=== PATIENT | female | born 1970 | race Caucasian/White ===

== ENCOUNTER 2018-11-08 16:51 | Observation (INO) ==
[2018-11-08 17:52] LABS: BASO% 0.2 % (0.0-0.8); EOS% 1.5 % (0.0-10.0); HEMATOCRIT 40.9 % (37.0-47.0); HEMOGLOBIN 13.7 g/dL (12.0-16.0); IMM GRAN% 0.2 % (0.0-0.5); LYMPH% 21.8 % (20.5-51.1); MCH 29.4 PG (27-31); MCHC 33.5 g/dL (33-37); MCV 87.8 FL (81-99); MONO% 6.5 % (1.7-9.3); MPV 10.5 FL (7.4-10.4); NEUT% 69.8 % (42.2-75.2); PLT 223 X1000 (130-400); RBC 4.66 XMIL (4.2-5.4); WBC 9.73 X1000 (4.8-10.8)
[2018-11-08 17:53] LABS: BASO# 0.02 X1000 (0.0-0.2); EOS# 0.15 X1000 (0.0-0.7); IMM GRAN# 0.02 X1000 (0.0-0.04); LYMPH# 2.12 X1000 (1.2-3.4); MONO# 0.63 X1000 (0.11-0.59); NEUT# 6.79 X1000 (1.4-6.5)
[2018-11-08 18:04] LABS: HEMOGLOBIN A1C 5.6 % (4.8-6.0)
[2018-11-08 19:00] LABS: AGAP 19; ALKALINE PHOSPHATASE 85 U/L (32-104); BUN 11 mg/dL (8-22); CALCIUM 9.3 mg/dL (8.8-10.2); CHLORIDE 102 mmol/L (98-107); COSMO 285; CREATININE 0.8 mg/dL (0.5-0.9); ESTIMATED GFR > 60; GLUCOSE 102 mg/dL (70-104); GOT 17 U/L (10-30); GPT 13 U/L (10-36); POTASSIUM 3.5 mmol/L (3.5-5.1); SODIUM 143 mmol/L (136-145); TCO2 22 mmol/L (25-35); TOTAL BILIRUBIN 0.29 mg/dL (0.20-1.00); TOTAL PROTEIN 7.1 g/dL (6.3-8.3)
[2018-11-08 19:12] LABS: ALBUMIN 4.5 g/dL (3.5-5.0)
[2018-11-08 19:19] LABS: ALB/GLOB RATIO 1.7
--- NOTE | 2018-11-08 19:46 | EKG Report ---
Test Performed on : 11/08/2018 6:10:06 PM Test Reason : chest pain Blood Pressure : / mmHG Vent. Rate : 067 BPM Atrial Rate : 067 BPM P-R Int : 152 ms QRS Dur : 088 ms QT Int : 424 ms P-R-T Axes : -26 044 038 degrees QTc Int : 448 ms Normal sinus rhythm. Normal ECG No previous ECGs available Confirmed by Agustina Holly MD ([id number]) on 11/10/2018 12:10:26 PM
--- NOTE | 2018-11-08 19:53 | Diag Imaging Result Doc PS360 ---
EXAM: CHEST-2 VIEWS - 11/08/2018 HISTORY: chest pain TECHNIQUE: Chest two views COMPARISON: None. FINDINGS: Heart size is normal. The lungs appear clear. There is no pleural effusion or pneumothorax identified. IMPRESSION: No evidence of acute disease. Electronically signed by Rogelio Flores 11/08/2018 7:51 PM
--- NOTE | 2018-11-08 20:02 | Diag Imaging Result Doc PS360 ---
EXAM: CT ABD/PELVIS W/PO AND IV CON - 11/08/2018 HISTORY: abd pain TECHNIQUE: CT abdomen/pelvis with oral and intravenous contrast COMPARISON: None. FINDINGS: The visualized lung bases appear clear. There is a possible small hiatal hernia. There are no substantial abnormalities of the liver, spleen, or pancreas identified. There is a 2.2 x 1.3 cm right adrenal nodule which likely represents adenoma. The left adrenal gland is unremarkable. There are no calcified gallstones or pericholecystic inflammation identified. The bilateral kidneys enhance homogeneously. There is no hydronephrosis. There are nonspecific small retroperitoneal lymph nodes. There are bilateral L5 pars interarticularis defects noted. There is no evidence of bowel obstruction. The appendix is unremarkable. There is colonic diverticulosis which is most prominent at the descending and sigmoid colon. There is no evidence of diverticulitis. There is no free air or abscess identified. There are postsurgical changes of partial hysterectomy. There is apparent 4.9 x 3 cm left ovarian cyst. There is no substantial free fluid seen. IMPRESSION: Possible small hiatal hernia. No calcified gallstones. No pericholecystic inflammation. 2.2 x 1.3 cm right adrenal nodule, which likely represents adenoma. No bowel obstruction. Unremarkable appendix. Colonic diverticulosis. No evidence of diverticulitis. Apparent 4.9 x 3 cm left ovarian cyst. Bilateral L5 pars interarticularis defects noted. This exam was performed using automated exposure control, adjustment of mA or kV according to patient size, and/or use of iterative reconstruction technique. Electronically signed by Rogelio Flores 11/08/2018 8:00 PM
[2018-11-08] MEDS ORDERED: LABETALOL IV PRN (20:15)
[2018-11-08] MEDS ORDERED: ZOFRAN IV PRN (20:24)
[2018-11-08] MEDS ORDERED: MORPHINE IV PRN (20:24)
[2018-11-08] MEDS ORDERED: KLOR-CON PO ONE (20:29)
[2018-11-08] MEDS ORDERED: SODIUM CHLORIDE 0.9% INJ SCH (20:30)
[2018-11-08] MEDS ORDERED: PROTONIX IV SCH (20:30)
--- NOTE | 2018-11-08 21:07 | Diag Imaging Result Doc PS360 ---
EXAM: THORACIC SPINE - 11/08/2018 HISTORY: upper back pain TECHNIQUE: Thoracic spine three views COMPARISON: None. FINDINGS: There is slight levo rotatory scoliosis at the mid to lower thoracic spine. There is mild spondylosis with small anterior and lateral osteophytes. There is no destructive or sclerotic lesion identified. There is no fracture or subluxation identified. IMPRESSION: Mild degenerative changes. No evidence of fracture or subluxation. Electronically signed by Rogelio Flores 11/08/2018 9:05 PM
--- NOTE | 2018-11-08 21:08 | HISTORY AND PHYSICAL ---
CHIEF COMPLAINT: Abdominal pain. HISTORY OF PRESENT ILLNESS: A 48-year-old, white female patient, not doing well the last 2 to 3 days. Complaining of pain in the lower abdomen moderate in intensity. The pain is off and on. This patient did have some chills, nausea, but no vomiting. The pain is lasting for a few hours. Sometimes the pain comes and goes. The patient was also complaining of pain in the left side of the chest going to the back, mild shortness of breath. No sweating. Her risk factors for coronary artery disease include hypertension, hyperlipidemia, menopause. The patient was complaining of pain in the upper back which was also mild to moderate in intensity. The patient had multiple vague complaints. I evaluated patient in the office. She did have tenderness in the lower abdomen, also in the upper back. The patient was in [id number] distress, and I decided to admit the patient for further care. The patient had polyuria, polydipsia, occasional dysuria, but no gross hematuria. She denied any vaginal discharge, spotting, bleeding. At times, constipation. No diarrhea, blood or mucus in the stool. No abdominal distention. No runny nose, stuffy nose. Denied any sinus drainage. Occasional dull headache. Vague chest pain, left precordial area. No radiation of pain into the arm. No major weight loss or weight gain. Occasional cough. No expectoration or hemoptysis. ALLERGIES: No known drug allergy. MEDICATIONS: Include Hyzaar and Singulair. PAST MEDICAL HISTORY: Hypertension, hyperlipidemia, rhinitis, obesity. Patient had hysterectomy. PERSONAL HISTORY: , lives with the . Denied alcohol or substance abuse. Patient is a nurse working in the alf. FAMILY HISTORY: Significant for mother with diabetes, multiple myeloma, and ovarian cancer. REVIEW OF SYSTEMS: As per HPI. PHYSICAL EXAMINATION: GENERAL: Middle-aged, white female patient, moderately obese, in mild distress. VITAL SIGNS: Noted. SKIN: No rash or petechiae. HEENT: Head atraumatic, normocephalic. Crane conjunctivae. Anicteric sclerae. Extraocular muscle movement normal. Fundus cannot be penetrated. Good oral hygiene. No tonsillopharyngeal congestion or exudate. Ears and nose benign. NECK: Supple. No JVD, thyromegaly, or lymphadenopathy. CHEST: Bibasilar crepitation. Occasional wheezing. CARDIOVASCULAR: S1 and S2 heard. No gallop or thrill. ABDOMEN: Soft. No distention. Bowel sounds present. Patient does have tenderness in the epigastrium, lower abdomen. No guarding or rigidity. EXTREMITIES: No cyanosis, clubbing. No acute DVT. Peripheral pulsation intact. CENTRAL NERVOUS SYSTEM: Alert, awake, able to move all 4 limbs. Mild tenderness of upper back. LABORATORY AND DIAGNOSTIC DATA: WBC count 9.73, hemoglobin 13.7, hematocrit 40.9, platelet count 223,000. Electrolytes were fairly benign. Potassium 3.5. Cardiac isoenzymes were negative. Hemoglobin A1c was 5.6. TSH 1.45. The patient had a chest x-ray done which was negative. CT scan of the abdomen and pelvis did reveal a right adrenal nodule, which looks benign. No evidence of cholecystitis. No bowel obstruction. A 4.9 x 3 cm left ovarian cyst. CONSIDERATIONS: 1. Abdominal pain. 2. Left ovarian cyst. I am going to get a CA-125. 3. Gastritis and reflux disease. 4. History of hypertension. 5. Mild hypokalemia. 6. Upper back pain. PLAN: Admit the patient, IV hydration, pain management, symptomatic treatment. Overall plan discussed at length with the patient and she is in agreement. I am going to supplement potassium, continue home medicine, symptomatic treatment for pain. cc: Lacho Joyce MD
[2018-11-08 21:39] LABS: URINE SOURCE CLEAN CATCH
[2018-11-08 22:16] LABS: BILIRUBIN URINE NEGATIVE (NEGATIVE); BLOOD URINE LARGE (NEGATIVE); COLOR STRAW; GLUCOSE URINE NEGATIVE (NEGATIVE); KETONE URINE NEGATIVE (NEGATIVE); LEUKOCYTES URINE MODERATE (NEGATIVE); NITRITE URINE NEGATIVE (NEGATIVE); PH URINE 7.5; PROTEIN URINE NEGATIVE (NEGATIVE); SP GRAVITY URINE 1.046; TURBIDITY URINE CLEAR (CLEAR); UROBILINOGEN URINE NORMAL (NORMAL)
[2018-11-08 22:18] LABS: UR EPITHELIAL CELLS <10 /HPF (<10); URINE BACTERIA NEGATIVE /HPF; URINE RBC 20-40 /HPF (<10); URINE WBC <10 /HPF (<10)
[2018-11-08] MEDS: NS + KCL 20 MEQ 1,000 ML IV SCH (22:41)
[2018-11-08 22:49] LABS: URINE CASTS NONE SEEN; URINE CRYSTALS NONE SEEN; URINE SMALL ROUND CELLS NONE SEEN; URINE YEAST NONE SEEN
[2018-11-09] MEDS ORDERED: LEVAQUIN 500 MG/D5W 500 MG/100 ML IVPB IV SCH (07:15)
--- NOTE | 2018-11-09 07:28 | PROGRESS NOTE ---
DATE: 11/09/2018 SUBJECTIVE: Ms. Crowe is feeling better. Her abdominal pain is improving. No nausea. No high- grade fever or chills. Back pain is also getting better. No dysuria or hematuria. No vaginal discharge. OBJECTIVE: Vital Signs: Noted. T-max was 99.6 degrees. Neck: Supple. No JVD. Mild tenderness to upper back. Lungs: Bilateral good air entry present. CVS: S1 and S2 heard. Abdomen: Soft, globular. Bowel sounds present. Tenderness in the epigastrium and lower abdomen improving. SANFORIZER: Alert, awake, able to move all 4 limbs. IMAGING AND LABORATORY DATA: The patient had a CT scan of the abdomen and pelvis done, which did reveal right adrenal nodule, left ovarian cyst, which is almost 5 x 3 cm, arthritis in the lower back, right adrenal nodule. The patient had x-ray done on the thoracic spine, which did reveal mild degenerative changes. Chest x-ray was benign. Urinalysis: Leukocyte was positive, and there was some blood. Culture result is pending. I am going to treat her with Levaquin. I supplemented her potassium. Morning blood work is pending. PLAN: I already ordered CA-125. Get pelvic ultrasound. Overall plan discussed with the patient. Start her on GI soft diet. Continue rest of the treatment. If clinical condition permits, will plan on discharging the patient home this evening. cc: Lacho Joyce MD
[2018-11-09 07:48] LABS: BASO# 0.03 X1000 (0.0-0.2); BASO% 0.5 % (0.0-0.8); EOS# 0.16 X1000 (0.0-0.7); EOS% 2.7 % (0.0-10.0); HEMATOCRIT 39.3 % (37.0-47.0); HEMOGLOBIN 12.9 g/dL (12.0-16.0); LYMPH# 1.57 X1000 (1.2-3.4); LYMPH% 26.5 % (20.5-51.1); MCH 28.9 PG (27-31); MCHC 32.8 g/dL (33-37); MCV 88.1 FL (81-99); MONO# 0.47 X1000 (0.11-0.59); MONO% 7.9 % (1.7-9.3); MPV 10.3 FL (7.4-10.4); NEUT% 62.4 % (42.2-75.2); PLT 216 X1000 (130-400); RBC 4.46 XMIL (4.2-5.4); RDW 14.1 % (11.5-14.5); WBC 5.93 X1000 (4.8-10.8)
--- NOTE | 2018-11-09 08:08 | Diag Imaging Result Doc PS360 ---
EXAM: US PELVIC NON-OB COMPLETE 11/09/2018 HISTORY: left ovarian cyst TECHNIQUE: Transabdominal COMMENT: The patient refused endovaginal scanning. The uterus is surgically absent. The urinary bladder is not well distended. The right ovary is not enlarged but is very poorly seen. There is an apparent septated cyst in the left ovary measuring 4.9 x 2.8 x 3.1 cm. The left ovary is 5.7 cm in overall largest dimension. There is no evidence of free fluid. There are no previous ultrasound examinations. Compared to the recent CT examination the left septated cyst was present at that time and the left ovary measured up to 6.1 cm. IMPRESSION: Septated/multiloculated left ovarian cyst. Electronically signed by Tommie Alexander 11/09/2018 8:06 AM
[2018-11-09 08:13] LABS: AGAP 12; ALB/GLOB RATIO 1.4; ALBUMIN 3.7 g/dL (3.5-5.0); ALKALINE PHOSPHATASE 70 U/L (32-104); BUN 8 mg/dL (8-22); CALCIUM 8.6 mg/dL (8.8-10.2); CHLORIDE 103 mmol/L (98-107); COSMO 278; CREATININE 0.7 mg/dL (0.5-0.9); ESTIMATED GFR > 60; GLUCOSE 100 mg/dL (70-104); GOT 13 U/L (10-30); GPT 12 U/L (10-36); POTASSIUM 3.5 mmol/L (3.5-5.1); SODIUM 140 mmol/L (136-145); TCO2 25 mmol/L (25-35); TOTAL BILIRUBIN 0.44 mg/dL (0.20-1.00); TOTAL PROTEIN 6.4 g/dL (6.3-8.3)
[2018-11-09] MEDS ORDERED: HYZAAR 100/12.5 MG TAB PO SCH (09:00)
[2018-11-09] MEDS ORDERED: SINGULAIR PO SCH (09:00)
[2018-11-09 17:24] VITALS: BP 140/82
[2018-11-09] MEDS: NS + KCL 20 MEQ 1,000 ML IV SCH (17:49)
== END 2018-11-09 18:07 | disposition home or self-care (01) ==
LOC: DIRADM → EDIPHOLD 16:51 → 1N 21:56
PROVIDERS: ADMIT Internal Medicine; ATTEND Internal Medicine